=== PATIENT | female | born 1990 | race Two or more races ===

== ENCOUNTER 2025-01-19 10:48 | Emergency (ER) | payer MEDICAID, OTHER ==
[~2025-01-19] VITALS: Ht 162.6 cm; Wt 72.3 kg
--- NOTE | 2025-01-19 12:02 | DVH ---
CLINICAL HISTORY: Rule out fracture. No other clinical information provided. TECHNIQUE: 3 views of the nasal bones were obtained. COMPARISON: None FINDINGS: No acute nasal bone fracture visualized. The rest of the visualized osseous structures tigre ear grossly intact. IMPRESSION: No evidence of acute nasal bone fracture.
[2025-01-19 12:05] VITALS: BP 127/74; PULSE 72; RESP 20; TEMP 97.7; O2SAT 95
[2025-01-19] MEDS ORDERED: IBUP-1455 PO (13:19)
--- NOTE | 2025-01-19 13:19 | ED.PDOC ---
Eye-HPI HPI Comments 34-year-old presents for nose pain x1 week. Injury is located to the nasal bridge and radiates to the bilateral temporal region Accident occurred after she hit her nose on a heating press and symptoms have been persistent since. No red flags Denies any vision changes. Nausea vomiting diarrhea Chief Complaint: Facial Injury Time Seen by MD: 11:22 Primary Care Provider: none Reviewed Notes: Nurses Notes, Medications, Allergies Allergies: Coded Allergies: Amoxicillin (Verified Allergy, Unknown, 01/19/25) Home Meds Active Scripts Ibuprofen Micronized (Ibuprofen) 800 Mg Tab, 800 MG PO TIDWM for 10 Days, #30 TAB 0 Refills Prov:STEVEN MARI REPAIRER PUMP 01/19/25 Information Source: Patient Mode of Arrival: Ambulatory Past Medical History PAST MEDICAL HISTORY: Denies [employer]OMOTIVE [employer] PERSON History: Denies all AUTOMOTIVE [employer]S PERSON Hx Family History Family History: Reviewed,noncontributory to illness Social History Smoker: Non-Smoker Alcohol: Denies ETOH Use Drugs: Denies Drug Use All Other Systems: Reviewed and Negative (Per HPI) Physical Exam General Appearance: No Apparent Distress, Normal HEENT: Normal ENT Inspection, PERRL/EOMI, Pharynx Normal, TMs Normal, Other (No gross abnormality to the nasal bridge. No crepitus. Airway intact) Neck: Full Range of Motion, Non-Tender, Normal, Normal Inspection Respiratory: Chest Non-Tender, Lungs Clear, No Accessory Muscle Use, No Respiratory Distress, Normal Breath Sounds Cardiovascular: No Murmur, No Gallop, Regular Rate/Rhythm Breast Exam: Deferred Gastrointestinal: No Organomegaly, Non Tender, No Pulsatile Mass, Normal Bowel Sounds, Soft Genitalia: Deferred Pelvic: Deferred Rectal: Deferred Extremities: No calf tenderness, Normal capillary refill, Normal inspection, Normal range of motion, Non-tender, No pedal edema Musculoskeletal : Apperance: Normal Neurologic: Alert, gospel worker II-XII nml as Tested, No Motor Deficits, Normal Affect, Normal Mood, No Sensory Deficits Cerebellar Function: Normal Reflexes: Normal Skin: Dry, Normal Color, Warm Lymphatic: No Adenopathy Was a procedure done? Was a procedure done?: No EENT DIFF Eye: Other Nose: Other X-Ray, Labs, Meds, VS Vital Signs Date Time Temp Pulse Resp B/P (MAP) Pulse Ox O2 Delivery O2 Flow Rate FiO2 01/19/25 12:05 97.7 72 20 127/74 (91) 95 97.7 01/19/25 12:05 72 20 95 01/19/25 11:17 97.7 72 20 127/74 (91) 95 97.7 PATIENT: DAPHNE LIVINGSTONT: [id number]: [id number] : 1990 LOC: ER ROOM / BED: / AGE / SEX: 34 / F ADM STATUS: REG ER SERVICE [id number] ORDERING PHYSICIAN: STEVEN MARI NP PROCEDURE(s): NOSE - NASAL BONES 3+VIEWS REASON: r/o fx ORDER NUMBER(s): [id number], ACCESSION NUMBER(s): [id number] CLINICAL HISTORY: Rule out fracture. No other clinical information provided. TECHNIQUE: 3 views of the nasal bones were obtained. COMPARISON: None FINDINGS: No acute nasal bone fracture visualized. The rest of the visualized osseous structures appear grossly intact. IMPRESSION: No evidence of acute nasal bone fracture. ATED BY: JAMES LU DO DICTATED DATE/TIME: 01/19/25 115 SIGNED BY: JAMES LU DO SIGNED DATE/TIME: 01/19/25 115 CC: X-Ray, Labs, Meds, VS Comment On reevaluation, patient had symptomatic improvement. Patient is stable for discharge at this time. External notes reviewed. Test results and diagnostic imaging interpreted. All diagnostic findings, discharge care, education and instructions provided Follow-up with PCP in 2 to 3 days Patient verbalized understanding and agreed to treatment plan Vital signs stable, afebrile, no acute distress noted Patient ambulatory with strong steady gait Advised to return precautions for any new or worsening symptoms, return to ER immediately for re-evaluation Patient is aware that the purpose of this visit was for an acute medical emergency requiring emergent stabilization. Chronic conditions, including malignancies have not been ruled out. Patient is instructed to follow up with PCP as directed and discharge instructions for continued care and workup. If unable to arrange follow-up, patient is to return to the emergency department for reassessment. Patient (parent or legal guardian if applicable) was given verbal and written discharge instructions and acknowledges understanding. Time of 1ST Reevaluation: 13:18 Reevaluation 1ST: Improved Patient Education/Counseling: Diagnosis, Treatment Family Education/Counseling: Diagnosis, Treatment Departure 1 Departure Time of Disposition: :18 Impression: Primary Impression: Nose injury Qualified Codes: S09.92XA - Unspecified injury of nose, initial encounter Additional Impression: Temporal headache Disposition: HOME / SELF CARE / HOMELESS Condition: Stable e-Prescriptions Ibuprofen Micronized (Ibuprofen) 800 Mg Tab 800 MG PO TIDWM for 10 Days, #30 TAB 0 Refills Prov: STEVEN MARI REPAIRER PUMP 01/19/25 Critical Care Note Critical Care Time?: No Stability Stability form required: No Heart Score Heart Score: Heart Score Response (Comments) Value History N/A 0 EKG N/A 0 Age N/A 0 Risk Factors N/A 0 Troponin N/A 0 Total 0 STEVEN MARI REPAIRER PUMP Jan 19, 2025 13:19
[2025-01-19] MEDS: KETOROLAC TROMETH 30 MG/ML 1ML VIAL IM ONE (13:38)
== END 2025-01-19 13:40 | disposition home or self-care (01) ==
LOC: ER 10:48
DX: S09.92XA Unspecified injury of nose, initial encounter (principal); R51.9 Headache, unspecified; Z88.0 Allergy status to penicillin; X58.XXXA Exposure to other specified factors, initial encounter; Y93.89 Activity, other specified; Y92.89 Other specified places as the place of occurrence of the external cause; Y99.8 Other external cause status
CPT/HCPCS: 70160; 96372; 99283; J1885